=== PATIENT | female | born 1960 | race Caucasian/White ===

== ENCOUNTER 2020-02-10 11:13 | Emergency (ER) | payer BC ==
[2020-02-10] MEDS ORDERED: HEPARIN SOD (PORCINE) 1,000 UNIT/ML 10 ML VIAL IV ONE (11:47)
--- NOTE | 2020-02-10 11:50 | ER Document Report ---
ED General - General Chief Complaint: Leg Pain Stated Complaint: LEG PAIN Time Seen by Provider: 02/10/20 11:42 Primary Care Provider: KM CARLOS DO [Primary Care Provider] - Follow up as needed Notes: 59-year-old lady [facility] for worsening pain in the left lower extremity. She is a history of several nonhealing wounds on that foot and was presenting to the clinic today after an increase in pain for 1 day from the chronic pain as well as discoloration for about 2 days in her left foot. Foot was noted to be cold in the office and per the PA who called me, he was unable to Doppler a pulse in the dorsalis pedis on the left but did find a weak PT on the left. She has paresthesias, and hyperesthesia of the skin as well. She is a heavy smoker and has had a stroke before. - Related Data Allergies/Adverse Reactions: Penicillins Allergy (Unknown, Verified 02/10/20 11:41) Hives Past Medical History - General Information source: Patient - Social History Smoking Status: Current Every Day Smoker Smoking Education Provided: Yes - The patient ED visit today was directly related to their abuse of tobacco. Family History: None Review of Systems - Review of Systems Notes: REVIEW OF SYSTEMS GEN: Denies fever, chills, weight loss ENT: Denies sore throat, nasal discharge, ear pain EYES: Denies blurry vision, eye pain, discharge CV: Denies chest pain, palpitations, edema RESP: Denies cough, shortness of breath, wheezing GI: Denies abdominal pain, nausea, vomiting, diarrhea MSK: Pain SKIN: Patient's left feet toes LYMPH: Denies swollen glands/lymph nodes NEURO: Denies headache, focal weakness or numbness, dizziness PSYCH: Denies depression, suicidal or homicidal ideation PHYSICAL EXAMINATION General: No acute distress, well-nourished Head: Atraumatic, normocephalic ENT: Mouth normal, oropharynx moist, no exudates or tonsillar enlargement Eyes: Conjunctiva normal, pupils equal, lids normal Neck: No JVD, supple, no guarding CVS: Normal rate, regular rhythm, no murmurs Resp: No resp distress, equal and normal breath sounds bilaterally GI: Nondistended, soft, no tenderness to palpation, no rebound or guarding Ext: No deformities, no edema, normal range of motion in upper and lower ext Back: No CVA or midline TTP Skin: Cool to touch with mottling and bluish discoloration duskiness mostly on the plantar surface but also involving most of the first second and third toes. No palpable pulses in left foot at all. Doppler: Lymphatic: No lymphadeopathy noted Neuro: Awake, alert. Face symmetric. GCS 15. Physical Exam - Vital signs Vitals: Temp Pulse Resp BP Pulse Ox 98.0 F 108 H 18 149/90 H 98 02/10/20 11:39 02/10/20 11:39 02/10/20 11:39 02/10/20 11:39 02/10/20 11:39 Course - Re-evaluation Re-evalutation: 02/10/20 12:17 Acute on chronic lower leg ischemia with evidence of arterial insufficiency greatly diminished PT pulse and absent DP pulse with poor color thermia pallor duskiness and paresthesia Immediate start heparin CTA without creatinine and will arrange transfer for vascular surgery 02/10/20 13:14 Labs appear normal. Given Dilaudid for pain. Unable to Doppler pulses in left foot Discussed via transfer center with Dr. Kathrine Abraham from vascular surgery who accepts patient to the OR [employer] arrived in the patient departed at 115 after receiving Dilaudid, and a small dose of Valium which were by at least 10 minutes, to cover for anxiety over flying. I discussed with Kathrine Abraham regarding CT he would rather not do it since he can give contrast to the OR - Vital Signs Vital signs: Temp Pulse Resp BP Pulse Ox 98.0 F 108 H 14 152/102 H 99 02/10/20 11:39 02/10/20 11:39 02/10/20 13:01 02/10/20 13:01 02/10/20 13:01 - Laboratory Result Diagrams: 02/10/20 12:30 02/10/20 12:30 Laboratory results interpreted by me: 02/10/20 02/10/20 12:30 12:30 WBC 10.9 H MCV 103 H MCH 35.2 H RDW 14.1 H Lymph % (Auto) 12.9 L Absolute Neuts (auto) 9.2 H Seg Neutrophils % 83.9 H Carbon Dioxide 20 L BUN 34 H Est GFR ( Amer) 54 L Est GFR (MDRD) Non-Af 45 L Glucose 233 H Critical Care Note - Critical Care Note Total time excluding time spent on procedures (mins): 34 Comments: The above patient is critically ill. Not including procedures, but including direct re-evaluations, speaking with patient and/or consultants, interpreting results, and documenting, I spent the total amount of minute listed listed above on critical care time Discharge - Discharge Clinical Impression: Critical lower limb ischemia Condition: Critical Disposition: [facility] Referrals: KM CARLOS, [Primary Care Provider] - Follow up as needed
[2020-02-10] MEDS ORDERED: HEPARIN SODIUM,PORCINE/D5W 25,000 UNIT/250 ML RTUINJ IV PRN (12:30)
[2020-02-10 12:43] LABS: ABSOLUTE LYMPHOCYTES (AUTO) 1.4 10^3/uL (0.5-4.7); ABSOLUTE MONOCYTES (AUTO) 0.3 10^3/uL (0.1-1.4); ABSOLUTE NEUT (AUTO) 9.2 10^3/uL (1.7-8.2); BASOPHILS % (AUTO) 0.2 % (0-2); HEMATOCRIT 43.1 % (36.0-47.0); HEMOGLOBIN 14.7 g/dL (12.0-15.5); LYMPHOCYTES % (AUTO) 12.9 % (13-45); MEAN CORPUSCULAR HEMOGLOBIN 35.2 pg (27.0-33.4); MEAN CORPUSCULAR HGB CONC 34.1 g/dL (32.0-36.0); MEAN CORPUSCULAR VOLUME 103 fl (80-97); PLATELET COUNT 222 10^3/uL (150-450); RED BLOOD COUNT 4.18 10^6/uL (3.72-5.28); RED CELL DISTRIBUTION WIDTH 14.1 % (11.5-14.0); SEGMENTED NEUTROPHILS % (AUTO) 83.9 % (42-78); TOTAL CELLS COUNTED % (AUTO) 100 %; WHITE BLOOD COUNT 10.9 10^3/uL (4.0-10.5)
[2020-02-10] MEDS ORDERED: DIAZEPAM INJ 10 MG/2 ML DISP.SYRIN IV PRN (12:46)
[2020-02-10] MEDS ORDERED: HYDROMORPHONE HCL INJ/PF 2 MG/ML AMPULE IV ONE (12:46)
[2020-02-10 12:49] LABS: INTERNATIONAL RATION (INR) 0.93; PARTIAL THROMBOPLASTIN TIME 24.3 SEC (23.5-35.8); PROTHROMBIN TIME 12.7 SEC (11.4-15.4)
[2020-02-10 13:02] LABS: ANION GAP 12 (5-19); BLOOD UREA NITROGEN 34 mg/dL (7-20); CARBON DIOXIDE 20 mmol/L (22-30); CHLORIDE 106 mmol/L (98-107); GLUCOSE 233 mg/dL (75-110); POTASSIUM 4.8 mmol/L (3.6-5.0)
[2020-02-10 13:13] VITALS: BP 152/102
[2020-02-10] MEDS ORDERED: HEPARIN SOD (PORCINE) 1,000 UNIT/ML 10 ML VIAL IV PRN (14:48)
== END 2020-02-10 13:15 | disposition short-term general hospital (02) ==
LOC: ER 11:13
DX: I70.222 Atherosclerosis of native arteries of extremities with rest pain, left leg (principal); M79.605 Pain in left leg; F17.210 Nicotine dependence, cigarettes, uncomplicated; G89.29 Other chronic pain; Z88.0 Allergy status to penicillin; Z86.73 Personal history of transient ischemic attack (TIA), and cerebral infarction without residual deficits
CPT/HCPCS: 99285; 96375; 96365; 36415; 85025; 85610; 85730; 80048; J1644 ×2; J3360; J1170

== ENCOUNTER → 2020-03-14 | Outpatient (CLI) | payer BC ==
--- NOTE | 2020-03-14 15:02 | RADIOLOGY REPORT (SQ) ---
EXAM DESCRIPTION: TIBIA FIBULA LEFT IMAGES COMPLETED DATE/TIME: 03/14/2020 2:52 pm REASON FOR STUDY: (L97.222)NON-PRESSURE CHRONIC ULCER OF LEFT CALF W FAT LAYER EXPOSED L97.222 NON- PRESSURE CHRONIC ULCER OF LEFT CALF W FAT LAYER L97.522 NON-PRS CHRONIC ULCER OTH PRT LEFT FOOT W F AT LAYER E11.621 TYPE 2 DIABETES MELLITUS WITH FOOT ULCER COMPARISON: None. NUMBER OF VIEWS: Two views. TECHNIQUE: Two radiographic images acquired of the left tibia and fibula to include the knee and ank le in at least one projection. LIMITATIONS: None. FINDINGS: MINERALIZATION: Normal. BONES: No acute fracture or dislocation. No worrisome bone lesions. SOFT TISSUES: Soft tissue calcifications and edema. OTHER: No other significant finding. IMPRESSION: No conventional radiographic evidence of osteomyelitis. Soft tissue edema. TECHNICAL DOCUMENTATION: JOB ID: [id number] 2010 [employer]- All Rights Reserved Reading location - IP/workstation name: [email or web address]
--- NOTE | 2020-03-14 15:05 | RADIOLOGY REPORT (SQ) ---
EXAM DESCRIPTION: FOOT LEFT COMPLETE IMAGES COMPLETED DATE/TIME: 03/14/2020 2:52 pm REASON FOR STUDY: (L9.)NON-PRESSURE CHRONIC ULCER OF LEFT CALF W FAT LAYER EXPOSED L97.222 NON- PRESSURE CHRONIC ULCER OF LEFT CALF W FAT LAYER L97.522 NON-PRS CHRONIC ULCER OTH PRT LEFT FOOT W F AT LAYER E11.621 TYPE 2 DIABETES MELLITUS WITH FOOT ULCER COMPARISON: None. NUMBER OF VIEWS: Three views. TECHNIQUE: AP, lateral and oblique without weight bearing radiographic images acquired of the left f oot. LIMITATIONS: None. FINDINGS: MINERALIZATION: Normal. BONES: No acute fracture or dislocation. There is dislocation of the 2nd metatarsal phalangeal joint. The proximal phalanx is displaced superiorly and medially. JOINTS: Severe degenerative changes throughout the tarsal metatarsal joints with subchondral cysts mo st marked in the 3rd and 5th digits. 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 SOFT TISSUES: No swelling. No calcifications. OTHER: Small calcaneal spur at the insertion site of the plantar aponeurosis. 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 No conventional radiographic evidence of osteomyelitis. TECHNICAL DOCUMENTATION: JOB ID: [id number] 2010 [employer]- All Rights Reserved Reading location - IP/workstation name: [email or web address]
[2020-03-14 15:13] LABS: ABSOLUTE BASOPHILS # (AUTO) 0.1 10^3/uL (0.0-0.2); ABSOLUTE LYMPHOCYTES (AUTO) 2.5 10^3/uL (0.5-4.7); ABSOLUTE MONOCYTES (AUTO) 0.6 10^3/uL (0.1-1.4); ABSOLUTE NEUT (AUTO) 4.6 10^3/uL (1.7-8.2); EOSINOPHILS % (AUTO) 0.6 % (0-6); HEMATOCRIT 35.5 % (36.0-47.0); HEMOGLOBIN 11.9 g/dL (12.0-15.5); MEAN CORPUSCULAR HEMOGLOBIN 34.4 pg (27.0-33.4); MEAN CORPUSCULAR HGB CONC 33.6 g/dL (32.0-36.0); MEAN CORPUSCULAR VOLUME 102 fl (80-97); MONOCYTES % (AUTO) 7.2 % (3-13); PLATELET COUNT 223 10^3/uL (150-450); RED BLOOD COUNT 3.46 10^6/uL (3.72-5.28); RED CELL DISTRIBUTION WIDTH 14.7 % (11.5-14.0); SEGMENTED NEUTROPHILS % (AUTO) 59.2 % (42-78); TOTAL CELLS COUNTED % (AUTO) 100 %; WHITE BLOOD COUNT 7.7 10^3/uL (4.0-10.5)
[2020-03-14 15:51] LABS: ERYTHROCYTE SEDIMENTATION RATE 37 mm/hr (0-30)
[2020-03-14 15:59] LABS: ALBUMIN 4.1 g/dL (3.5-5.0); ALKALINE PHOSPHATASE 79 U/L (38-126); ANION GAP 12 (5-19); ASPARTATE AMINO TRANSFERASE 26 U/L (14-36); BILIRUBIN,DIRECT 0.2 mg/dL (0.0-0.4); BILIRUBIN,TOTAL 0.4 mg/dL (0.2-1.3); BLOOD UREA NITROGEN 58 mg/dL (7-20); C-REACTIVE PROTEIN 8.2 mg/L (<10.0); CARBON DIOXIDE 18 mmol/L (22-30); CHLORIDE 108 mmol/L (98-107); GLUCOSE 194 mg/dL (75-110); POTASSIUM 4.3 mmol/L (3.6-5.0); TOTAL PROTEIN 7.2 g/dL (6.3-8.2)
== END ==
LOC: RAD 14:25
PROVIDERS: ATTEND Nurse Practitioner Family
DX: E11.621 Type 2 diabetes mellitus with foot ulcer (principal); L97.222 Non-pressure chronic ulcer of left calf with fat layer exposed; L97.522 Non-pressure chronic ulcer of other part of left foot with fat layer exposed
CPT/HCPCS: 36415; 80053; 83036; 85025; 85652; 86140